=== PATIENT | female | born 1950 | race Caucasian/White ===

== ENCOUNTER 2024-03-28 16:31 | Emergency (ER) | payer MEDICARE ==
[2024-03-28 18:11] VITALS: TEMP 97.6
[2024-03-28 18:30] LABS: Absolute Neutrophil Ct (ANC) 5.95 x10^3/uL (1.56-6.13); BASOPHIL % 0.4 % (0.1-1.2); Basophil (Absolute #) 0.04 x10^3/uL (0.01-0.08); Eosinophil % 1.4 % (0.7-5.8); Eosinophil (Absolute #) 0.13 x10^3/uL (0.04-0.36); Hematocrit 33.7 % (34.1-44.9); Hemoglobin 10.5 g/dL (11.2-15.7); IMMATURE GRAN # 0.02 x10^3u/L (0.001-0.031); IMMATURE GRAN % 0.2 % (0.001-0.429); Lymphocyte (Absolute #) 2.33 x10^3/uL (1.18-3.74); Lymphocytes % 25.3 % (19.3-51.7); Mean Corpuscular Hemoglobin 24.3 pg (25.6-32.2); Mean Corpuscular Hgb Concent. 31.2 g/dL (32.2-35.5); Mean Platelet Volume 9.7 fL (9.4-12.3); Monocyte (Absolute #) 0.73 x10^3/uL (0.24-0.86); Monocytes % 7.9 % (4.7-12.5); Neutrophil % 64.8 % (34.0-71.1); Platelet Count 228 x10^3/uL (182-369); Red Blood Count 4.32 x10^6/uL (3.93-5.22); Red Cell Distribution Width 14.7 % (11.7-14.4); White Blood Count 9.2 x10^3/uL (3.98-10.04)
[2024-03-28] MEDS ORDERED: SUBLIMAZE 100 MCG/2 ML ONE (18:34)
[2024-03-28] MEDS ORDERED: Zofran 4 MG/2 ML VIAL ONE (18:34)
[2024-03-28] MEDS: Zofran 4 MG/2 ML VIAL IV ONE (18:35)
[2024-03-28] MEDS: SUBLIMAZE 100 MCG/2 ML IV ONE (18:36)
[2024-03-28 19:17] LABS: ALBUMIN 4.4 g/dL (3.5-5.0); ANION GAP 11.9 MEQ/L (5-15); BILIRUBIN,TOTAL 0.5 mg/dL (0.2-1.3); Calcium 9.3 mg/dL (8.4-10.2); Creatinine 1 0.96 mg/dL (0.52-1.04); EST GLOMERULAR FILTRATION RATE 62.1 ML/MIN; MAGNESIUM 2.1 mg/dL (1.6-2.3); Potassium 3.9 mmol/L (3.5-5.1); Total Protein 7.5 g/dL (6.3-8.2)
[2024-03-28] MEDS ORDERED: TRANDATE 20 MG/4 ML SYRINGE IV ONE ×2 (20:21→21:40)
[2024-03-28] MEDS: TRANDATE 20 MG/4 ML SYRINGE IV ONE ×2 (20:21→21:44)
[2024-03-28 21:08] VITALS: RESP 10
--- NOTE | 2024-03-28 22:58 | ERPHSYRPT ---
- History of Present Illness Time Seen by Provider: 03/28/24 18:07 Source: patient Exam Limitations: no limitations Patient Subjective Stated Complaint: Shoulder pain ([place]) Triage Nursing Assessment: Patient ambulated back to ED and transferred self to bed. Patient A+O X 3. Patient's skin pink, warm and dry. Patient states she has arthritis in pe[place] shoulders and need surgery, but has to wait until May. Patient states today her pain is 9/10 in pe[place] shoulders. Patient denies injury or trauma. Physician History: 73 years old female with history of arthritis, hypertension presented in the ER with complaint of bilateral shoulder and upper back pain for the last couple of weeks with progressive worsening since yesterday. Patient reports pain going across upper back. Denies any chest pain or palpitations. No difficulty breathing. Reproducible pain in the shoulder with movements. No midline back pain. No fall or trauma. Allergies/Adverse Reactions: phentermine [From Adipex-P] Allergy (Verified 03/28/24 17:58) Hx Influenza Vaccination/Date Given: Yes Hx Pneumococcal Vaccination/Date Given: No Immunizations Up to Date: Yes Travel Risk - International Travel Have you traveled outside of the country in past 3 weeks: No - Emerging Infectious Disease Are you exhibiting symptoms associated with any current EIDs: No - Review of Systems Constitutional: No Symptoms Eyes: No Symptoms Ears, Nose, & Throat: No Symptoms Respiratory: No Symptoms Cardiac: No Symptoms Abdominal/Gastrointestinal: No Symptoms Genitourinary Symptoms: No Symptoms Musculoskeletal: Arthralgias, Back Pain Neurological: No Symptoms Endocrine: No Symptoms Hematologic/Lymphatic: No Symptoms Immunological/Allergic: No Symptoms - Past Medical History Pertinent Past Medical History: Yes Neurological History: No Pertinent History ENT History: No Pertinent History Cardiac History: High Cholesterol, Hypertension Respiratory History: No Pertinent History Endocrine Medical History: No Pertinent History Musculoskeletal History: Arthritis GI Medical History: No Pertinent History History: No Pertinent History Psycho-Social History: Depression Female Reproductive Disorders: No Pertinent History - Past Surgical History Past Surgical History: Yes Cardiac: Cardiac Stent Respiratory: No Pertinent History Gastrointestinal: Appendectomy, Cholecystectomy Musculoskeletal: Orthopedic Surgery Female Surgical History: Hysterectomy Other Surgical History: Rotator cuff left shoulder. bladder repair - Social History Smoking Status: Never smoker Exposure to second hand smoke: No Drug Use: none - Social Determinants of Health Will the patient participate in the screening: Yes Do you worry about a steady place to live?: No Do you have any problems with any of the following?: No known problems In the past 12 months,have you had to go without utilities?: No Transportation Issues: No Has anyone in your support network made you feel unsafe?: No Have you or anyone in your house had to go without enough: No - Nursing Vital Signs Nursing Vital Signs: Initial Vital Signs Temperature 97.6 F 03/28/24 18:01 Pulse Rate 70 03/28/24 18:01 Respiratory Rate 18 03/28/24 18:01 Blood Pressure 183/91 03/28/24 18:01 O2 Sat by Pulse Oximetry 98 03/28/24 18:01 Pain Scale Pain Intensity 4 - Physical Exam General Appearance: no apparent distress Eye Exam: PERRL/EOMI Ears, Nose, Throat Exam: normal ENT inspection Neck Exam: normal inspection, non-tender, supple, full range of motion Respiratory Exam: normal breath sounds, chest tenderness (Upper back tenderness. No midline tenderness), lungs clear Cardiovascular Exam: regular rate/rhythm, normal heart sounds Gastrointestinal/Abdomen Exam: soft, normal bowel sounds, No tenderness Back Exam: normal inspection, normal range of motion, No vertebral tenderness Extremity Exam: normal inspection, limited range of motion (Bilateral shoulders) Neurologic Exam: alert, oriented x 3, cooperative Skin Exam: normal color SpO2 Interpretation: normal SpO2: 94 O2 Delivery: Room Air - Course EKG Interpreted by Me: RATE (68), Sinus Rhythm, NORMAL AXIS, NORMAL INTERVALS, Non-specific ST Changes Ordered Tests: Active Orders 24 hr Category Date Time Status Job Printer Apprentice STAT Care 03/28/24 18:08 Active EKG-ER Only STAT Care 03/28/24 18:07 Active IV Insertion STAT Care 03/28/24 18:07 Active CHEST WITH CONTRAST [CT] Stat Exams 03/28/24 20:09 Taken CBC W DIFF Stat Lab 03/28/24 18:25 Completed CMP Stat Lab 03/28/24 18:25 Completed MAGNESIUM Stat Lab 03/28/24 18:25 Completed NT PRO BNPII Stat Lab 03/28/24 18:25 Completed TROPONIN Q4H Lab 03/28/24 18:25 Completed TROPONIN Q4H Lab 03/28/24 22:00 Completed TROPONIN Q4H Lab 03/29/24 02:15 Ordered Medication Summary Discontinued Medications Generic Name Dose Route Start Last Admin Trade Name Freq PRN Reason Stop Dose Admin Fentanyl Citrate 50 mcg 03/28/24 18:07 03/28/24 18:36 Fentanyl Citrate 100 Mcg/2 Ml* Vial IV 03/28/24 18:08 50 mcg STAT ONE Administration Fentanyl Citrate Confirm 03/28/24 18:34 Fentanyl Citrate 100 Mcg/2 Ml* Vial Administered 03/28/24 18:35 Dose 100 mcg .ROUTE .STK-MED ONE Labetalol HCl 10 mg 03/28/24 19:48 03/28/24 20:21 Labetalol Hcl 20 Mg/4 Ml Disp.Syringe IV 03/28/24 19:49 10 mg STAT ONE Administration Labetalol HCl Confirm 03/28/24 20:21 Labetalol Hcl 20 Mg/4 Ml Disp.Syringe Administered 03/28/24 20:22 Dose 20 mg IV .STK-MED ONE Labetalol HCl 10 mg 03/28/24 21:34 03/28/24 21:44 Labetalol Hcl 20 Mg/4 Ml Disp.Syringe IV 03/28/24 21:35 10 mg STAT ONE Administration Labetalol HCl Confirm 03/28/24 21:40 Labetalol Hcl 20 Mg/4 Ml Disp.Syringe Administered 03/28/24 21:41 Dose 20 mg IV .STK-MED ONE Ondansetron HCl 4 mg 03/28/24 18:08 03/28/24 18:35 Ondansetron Hcl 4 Mg/2 Ml Vial IV 03/28/24 18:09 4 mg STAT ONE Administration Ondansetron HCl Confirm 03/28/24 18:34 Ondansetron Hcl 4 Mg/2 Ml Vial Administered 03/28/24 18:35 Dose 4 mg .ROUTE .STK-MED ONE Lab/Rad Data: Laboratory Result Diagrams 03/28/24 18:25 03/28/24 18:25 Laboratory Results 03/28/24 03/28/24 03/28/24 Range/Units 22:00 18:25 18:25 WBC (3.98-10.04) x10^3/uL RBC (3.93-5.22) x10^6/uL Hgb (11.2-15.7) g/dL Hct (34.1-44.9) % MCV (79.4-94.8) fL MCH (25.6-32.2) pg MCHC (32.2-35.5) g/dL RDW (11.7-14.4) % Plt Count (182-369) x10^3/uL MPV (9.4-12.3) fL Gran % (34.0-71.1) % Immature Gran % (Auto) (0.001-0.429) % Nucleat RBC Rel Count (0.00-0.2) % Eos # (Auto) (0.04-0.36) x10^3/uL Immature Gran # (Auto) (0.001-0.031) x10^3u/L Absolute Lymphs (auto) (1.18-3.74) x10^3/uL Absolute Monos (auto) (0.24-0.86) x10^3/uL Absolute Nucleated RBC (0.00-0.012) x10^3u/L Lymphocytes % (19.3-51.7) % Monocytes % (4.7-12.5) % Eosinophils % (0.7-5.8) % Basophils % (0.1-1.2) % Absolute Granulocytes (1.56-6.13) x10^3/uL Basophils # (0.01-0.08) x10^3/uL Sodium 138 (135-145) mmol/L Potassium 3.9 (3.5-5.1) mmol/L Chloride 103 (98-107) mmol/L Carbon Dioxide 27 (22-30) mmol/L Anion Gap 11.9 (5-15) MEQ/L BUN 19 H (7-17) mg/dL Creatinine 0.96 (0.52-1.04) mg/dL Estimated GFR 62.1 ML/MIN Glucose 109 H (74-106) mg/dL Calcium 9.3 (8.4-10.2) mg/dL Magnesium 2.1 (1.6-2.3) mg/dL Total Bilirubin 0.50 (0.2-1.3) mg/dL AST 31 (14-36) U/L ALT 24 (0-35) U/L Alkaline Phosphatase 151 H (38-126) U/L Troponin I < 0.012 < 0.012 (0.000-0.033) ng/mL NT-Pro-B Natriuret Pep 1120 (<300) pg/mL Serum Total Protein 7.5 (6.3-8.2) g/dL Albumin 4.4 (3.5-5.0) g/dL 03/28/24 Range/Units 18:25 WBC 9.2 (3.98-10.04) x10^3/uL RBC 4.32 (3.93-5.22) x10^6/uL Hgb 10.5 L (11.2-15.7) g/dL Hct 33.7 L (34.1-44.9) % MCV 78.0 L (79.4-94.8) fL MCH 24.3 L (25.6-32.2) pg MCHC 31.2 L (32.2-35.5) g/dL RDW 14.7 H (11.7-14.4) % Plt Count 228 (182-369) x10^3/uL MPV 9.7 (9.4-12.3) fL Gran % 64.8 (34.0-71.1) % Immature Gran % (Auto) 0.2 (0.001-0.429) % Nucleat RBC Rel Count 0.0 (0.00-0.2) % Eos # (Auto) 0.13 (0.04-0.36) x10^3/uL Immature Gran # (Auto) 0.02 (0.001-0.031) x10^3u/L Absolute Lymphs (auto) 2.33 (1.18-3.74) x10^3/uL Absolute Monos (auto) 0.73 (0.24-0.86) x10^3/uL Absolute Nucleated RBC 0.00 (0.00-0.012) x10^3u/L Lymphocytes % 25.3 (19.3-51.7) % Monocytes % 7.9 (4.7-12.5) % Eosinophils % 1.4 (0.7-5.8) % Basophils % 0.4 (0.1-1.2) % Absolute Granulocytes 5.95 (1.56-6.13) x10^3/uL Basophils # 0.04 (0.01-0.08) x10^3/uL Sodium (135-145) mmol/L Potassium (3.5-5.1) mmol/L Chloride (98-107) mmol/L Carbon Dioxide (22-30) mmol/L Anion Gap (5-15) MEQ/L BUN (7-17) mg/dL Creatinine (0.52-1.04) mg/dL Estimated GFR ML/MIN Glucose (74-106) mg/dL Calcium (8.4-10.2) mg/dL Magnesium (1.6-2.3) mg/dL Total Bilirubin (0.2-1.3) mg/dL AST (14-36) U/L ALT (0-35) U/L Alkaline Phosphatase (38-126) U/L Troponin I (0.000-0.033) ng/mL NT-Pro-B Natriuret Pep (<300) pg/mL Serum Total Protein (6.3-8.2) g/dL Albumin (3.5-5.0) g/dL - Progress Progress: improved Progress Note: 03/28/24 22:54 73-year-old is evaluated in the ER for bilateral shoulder and upper back pain. Patient blood pressure was in 200s. EKG is sinus rhythm with no ST elevations. Given symptomatic treatment for pain and labetalol with improvement of pressure in 170s. Patient still continues to have pain. Normal white count, fairly unremarkable chemistries and negative troponins x 2. Has no chest pain. Obtained CTA chest which is negative for PE/dissection or any other acute intrathoracic/spinal findings. I believe patient's pain is secondary to arthritis. She does have [place] at home which she is advised to continue and follow-up with orthopedics/pain management. I do not think patient needs further workup. Counseled on blood pressure monitoring, keep a log and follow- up with PCP. I will give her clonidine to go home to take as needed for blood pressure greater than 160. Discussed signs symptoms of worsening needing return to ER which she seems understanding. Stable for discharge. Counseled pt/family regarding: lab results, diagnosis, need for follow-up, rad results Medical Desision Making - Independent Historian Additional History obtained from: Spouse - Diagnostic Testing Diagnostic test were ordered, analyzed, and reviewed by me: Yes Radiological Interpretation: Reviewed by me, Teleradiologist Report - Risk of complications The pt has a mod risk of morbidity or mortality based on: Need for prescription drug management - Departure Departure Disposition: Home Clinical Impression: Bilateral shoulder region arthritis, Uncontrolled hypertension, Muscle strain of upper back Condition: Stable Critical Care Time: No Referrals: GOVIND MORILLO JR [Primary Care Provider] - Follow up with PCP 1 day Instructions: Shoulder Tendinopathy (DC) Additional Instructions: Continue with your current pain medication. Follow-up with your orthopedic surgeon for reevaluation. Monitor your blood pressure regularly, keep a log and follow-up with PCP for reevaluation to see if he needs adjustment in dose of antihypertensive. Take clonidine only as needed if blood pressure greater than 160 systolic and do not take more than 2 pills in 24 hours. Return to ER for worsening chest pain, back pain, numbness tingling weakness etc. Prescriptions: Clonidine HCl 0.1 mg [Clonidine 0.1 mg Tablet] 0.1 mg PO Q12H PRN PRN 10 Days #10 tablet PRN Reason: Hypertension
[2024-03-28 23:12] VITALS: BP 174/91; PULSE 79; O2SAT 95
--- NOTE | 2024-03-28 23:36 | XRAY ---
Indication: Back pain. Aortic dissection. Conventional contrast enhanced CTA chest performed using 80 cc Isovue 370 contrast. 2-D sagittal and coronal reformatted images obtained. Additional 3-D reformatted images obtained using a separate workstation. Comparison: None Thoracic aorta is minimally arteriosclerotic without aneurysm/dissection. No central pulmonary embolus. Heart is not enlarged with scattered coronary calcifications. No pathologic mediastinal/hilar lymphadenopathy. Moderate-sized hiatal hernia with partial intrathoracic stomach. Lungs demonstrates 9 mm anterior medial right upper lobe and 3 mm peripheral right lower lobe noncalcified nodules. No infiltrate, consolidation, or effusion. Bony thorax intact with osteopenia and mild degenerative changes throughout spine. Limited upper abdomen demonstrates fatty liver and cholecystectomy clips. Impression: 1. Minimal arteriosclerotic aorta and scattered coronary calcifications. Remaining CTA chest is negative. 2. Incidental indeterminant right upper and right lower lobe noncalcified nodules. Too small for PET/CT. Outside comparison studies recommended. If not, recommend follow-up per Fleischner guidelines. 3. Chronic findings including hiatal hernia with partial intrathoracic stomach, fatty liver, and chronic bony findings.
== END 2024-03-28 23:22 | disposition home or self-care (01) ==
LOC: ED 16:31
DX: S29.012A Strain of muscle and tendon of back wall of thorax, initial encounter (principal); M19.012 Primary osteoarthritis, left shoulder; M19.011 Primary osteoarthritis, right shoulder; I10 Essential (primary) hypertension; M25.511 Pain in right shoulder; M25.512 Pain in left shoulder; E78.5 Hyperlipidemia, unspecified; Z79.899 Other long term (current) drug therapy
CPT/HCPCS: 36000; 36415; 71260; 80053; 83735; 83880; 84484; 85025; 93005; 93041; 96374; 96375; 99284; J2405; J3010

== ENCOUNTER 2024-05-25 14:28 | Observation (INO) | payer MEDICARE ==
[2024-05-25 15:06] LABS: Absolute Neutrophil Ct (ANC) 6.19 x10^3/uL (1.56-6.13); BASOPHIL % 0.3 % (0.1-1.2); Basophil (Absolute #) 0.03 x10^3/uL (0.01-0.08); Eosinophil % 1.4 % (0.7-5.8); Eosinophil (Absolute #) 0.13 x10^3/uL (0.04-0.36); Hematocrit 31.3 % (34.1-44.9); Hemoglobin 9.8 g/dL (11.2-15.7); IMMATURE GRAN # 0.09 x10^3u/L (0.001-0.031); Lymphocyte (Absolute #) 2.14 x10^3/uL (1.18-3.74); Lymphocytes % 22.9 % (19.3-51.7); Mean Cell Volume 78.6 fL (79.4-94.8); Mean Corpuscular Hemoglobin 24.6 pg (25.6-32.2); Mean Corpuscular Hgb Concent. 31.3 g/dL (32.2-35.5); Mean Platelet Volume 9.6 fL (9.4-12.3); Monocyte (Absolute #) 0.77 x10^3/uL (0.24-0.86); Monocytes % 8.2 % (4.7-12.5); Neutrophil % 66.2 % (34.0-71.1); Platelet Count 274 x10^3/uL (182-369); Red Blood Count 3.98 x10^6/uL (3.93-5.22); Red Cell Distribution Width 15.6 % (11.7-14.4); White Blood Count 9.4 x10^3/uL (3.98-10.04)
[2024-05-25 15:19] LABS: ALBUMIN 4.3 g/dL (3.5-5.0); ANION GAP 13.8 MEQ/L (5-15); BILIRUBIN,TOTAL 0.4 mg/dL (0.2-1.3); Creatinine 1 1.06 mg/dL (0.52-1.04); EST GLOMERULAR FILTRATION RATE 55.1 ML/MIN; Potassium 3.7 mmol/L (3.5-5.1); Total Protein 7.5 g/dL (6.3-8.2)
[2024-05-25] MEDS ORDERED: Zofran 4 MG/2 ML VIAL ONE (15:43)
[2024-05-25] MEDS ORDERED: Hydromorphone 1 mg/ml Injection ONE ×3 (15:43→18:33)
[2024-05-25] MEDS: Hydromorphone 1 mg/ml Injection IV ONE ×4 (15:45→22:42)
[2024-05-25] MEDS: Zofran 4 MG/2 ML VIAL IV ONE (15:45)
--- NOTE | 2024-05-25 16:45 | XRAY ---
CLINICAL HISTORY: trauma COMPARISON: None. TECHNIQUE: Contiguous 3.[address] images of the chest were acquired with the administration of 80CC isovue-370mg/ml intravenous contrast. Coronal and sagittal reconstructions were obtained.. One of the following dose reduction techniques was utilized for this exam: Automated exposure control, adjustment of the mA and/or kV according to patient size, and use of iterative reconstruction. CTDI:15.04mGy, DLP: 2101.25mGy*cm. FINDINGS: Lungs: Right upper lobe well-defined nodule measuring 11 x 19.1, in the superior segment of the right lower lobe measured 3.4 x 3.1 mm smaller nodule. Bilateral basal subpleural curvilinear thin bands and reticulation with scattered fibro atelectatic bands are likely sequelae of previous infection. Lungs are clear with no evidence of consolidation, collapse No pleural effusion or pleural thickening. Mediastinum: No mediastinal mass or abnormal lymphadenopathy. Normal appearance of the thymus. Hilar Structures: Normal size and configuration, no enlargement. Heart and Great Vessels: Cardiomegaly. No pericardial effusion. Normal caliber and course of the thoracic aorta and other great vessels. No significant atherosclerosis or aneurysm. Normal enhancement of the great vessels post-contrast. Pulmonary Arteries: No evidence of pulmonary embolism. Normal size and course of the pulmonary arteries. Esophagus: Normal course and caliber. No masses or dilatation. Sizable hiatus hernia. Bones: Sternal body oblique fracture involving anterior and posterior cortex with no overlying or underlying mediastinal hematoma. Degenerative changes. Of the thoracic spine Upper Abdomen: Cholecystectomy The pancreas shows 2 well-defined cystic lesions in the body measuring 18 x 14 mm and 11.9 x 11.3 mm. Thyroid: Normal size and morphology. No nodules or masses. IMPRESSION: 1. Sternal body oblique fracture involving anterior and posterior cortex with no overlying or underlying significant mediastinal hematoma. 2. No acute pulmonary consolidation or effusion. 3. Right upper lung lobe (11 x 9.1mm) nodule and right lower lower lung lobe ( 3.4 x 3.1 mm) nodule. 4. Cardiomegaly. 5. Sizable hiatus hernia. 6. Pancreatic body two small cystic lesions. [facility] ER was called at [phone] at 03:36 PM PRODUCTION DIRECTOR, 05/25/2024 Keila,Nurse was informed regarding the presence of significant medical findings in the report. Electronically Signed by: Braden Rodriguez MD. (05/25/2024 16:40:58 EDT)
--- NOTE | 2024-05-25 16:59 | XRAY ---
CLINICAL HISTORY: trauma COMPARISON: No prior studies available for comparison. TECHNIQUE: CT of the abdomen and pelvis was performed with 80 cc isovue-370 contrast, with the following protocol: axial images with, and reconstructed coronal and sagittal images. One of the following dose reduction techniques was utilized for this exam: Automated exposure control, adjustment of the mA and/or kV according to patient size, and use of iterative reconstruction. FINDINGS: Abdomen: A large hiatus hernia was noted measuring 6.9x2.6 cm. Liver: Normal in size, shape, and density. No focal lesions, cysts, or masses were identified. Hepatic vasculature and biliary ducts are unremarkable. Gallbladder and Biliary System: The gallbladder is surgically removed The common bile duct is normal in caliber without dilation. Pancreas: The pancreas shows diffuse atrophy with two well-defined peripherally located cystic lesions noted at the pancreatic body, with no septation or soft tissue component, measuring 1.8x1.3 and 1.2x1 cm. The pancreatic duct is not dilated. Spleen: Normal in size, shape, and density. No splenic lesions or masses were identified. Kidneys and Adrenal Glands: Both kidneys are normal in size, shape, and position. Cortical thickness is within normal limits. No renal calculi or hydronephrosis. Adrenal glands are unremarkable with no evidence of masses or hyperplasia. Pelvis: Urinary Bladder: Normal in contour and wall thickness. A small left bladder diverticulum was noted measuring 10x8 mm. No intraluminal lesions were identified. Uterus: Surgically removed. Ovaries: Not visualized. Peritoneal and Retroperitoneal Structures: No free fluid or abnormal fluid collections were identified within the abdomen or pelvis. No lymphadenopathy was noted. Bowel: The visualized bowel loops are normal in caliber and appearance. No evidence of bowel obstruction or wall thickening. Multiple sigmoid diverticular outpouchings noted, no signs of diverticulitis. Bones and Soft Tissues: Pelvic bones and soft tissues are unremarkable. No fractures or abnormal masses were identified. Lower back subcutaneous device noted with wires extendng to left sacrum likely sacral nerve stimulator. Chest findings are described with CT chest. IMPRESSION: 1. No intra-abdominal injury or free fluid detected. 2. Pancreatic cystic lesions were noted, likely benign, for further assessment with MRI. 3. Hiatus herna. 4. Non-complicated sigmoid diverticulosis. 5. A small bladder diverticulum. Electronically Signed by: Braden Rodriguez MD. (05/25/2024 16:53:56 EDT)
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
[2024-05-25] MEDS ORDERED: TORAdol 30 mg Injection ONE (18:33)
[2024-05-25] MEDS: TORAdol 30 mg Injection IV ONE (18:34)
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
[2024-05-25] MEDS: Hydromorphone 1 mg/ml Injection IV PRN (20:09)
[2024-05-25] MEDS ORDERED: Nitrostat 0.4 MG Tablet SL PRN (23:37)
[2024-05-25] MEDS ORDERED: CLONIDINE 0.1 MG TABLET PO PRN (23:37)
[2024-05-26] MEDS: NORCO 5/325 MG PO PRN (00:42)
[2024-05-26] MEDS: Zofran 4 MG/2 ML VIAL IV PRN (00:47)
[2024-05-26] MEDS ORDERED: Ativan 2 MG/1 ML VIAL ONE (02:05)
[2024-05-26] MEDS: Ativan 2 MG/1 ML VIAL IV ONE (02:10)
[2024-05-26] MEDS: Hydromorphone 1 mg/ml Injection IV PRN (03:36)
[2024-05-26 04:32] LABS: Appearance Turbid (Clear); Bacteria Many /HPF (None Seen); Bilirubin Negative (Negative); Blood Moderate (Negative); Epithelial Cells Many /HPF (None Seen); Glucose, Urine Negative (Negative); Hyaline Casts NONE SEEN /LPF (0-2); Ketones Negative (Negative); Leukocyte Esterase Small (Negative); Nitrite Negative (Negative); Protein,Urine Dip Trace (Negative); RBC 21-50 /HPF (0-5); Specific Gravity >=1.030 (1.005-1.030); WBC >100 /HPF (0-5)
[2024-05-26 07:45] LABS: Hematocrit 31.6 % (34.1-44.9); Hemoglobin 9.7 g/dL (11.2-15.7); Mean Cell Volume 79.8 fL (79.4-94.8); Mean Corpuscular Hemoglobin 24.5 pg (25.6-32.2); Mean Corpuscular Hgb Concent. 30.7 g/dL (32.2-35.5); Mean Platelet Volume 9.6 fL (9.4-12.3); Platelet Count 299 x10^3/uL (182-369); Red Blood Count 3.96 x10^6/uL (3.93-5.22); Red Cell Distribution Width 15.9 % (11.7-14.4)
[2024-05-26 08:09] LABS: ALBUMIN 4.1 g/dL (3.5-5.0); ANION GAP 14.5 MEQ/L (5-15); BILIRUBIN,TOTAL 0.6 mg/dL (0.2-1.3); Calcium 8.7 mg/dL (8.4-10.2); Creatinine 1 1.21 mg/dL (0.52-1.04); Total Protein 7.2 g/dL (6.3-8.2)
[2024-05-26] MEDS: NORCO 10-325 MG PO PRN (08:46)
[2024-05-26] MEDS: Lidoderm Patch 5% TOP SCH (08:47)
[2024-05-26] MEDS: DIOVAN 80 MG PO SCH (08:48)
[2024-05-26] MEDS: Namenda 5 MG PO SCH (08:48)
[2024-05-26] MEDS: Imdur 60MG PO SCH (08:48)
[2024-05-26] MEDS: Cymbalta 30 MG Capsule PO SCH (08:49)
[2024-05-26] MEDS: NEURONTIN PO SCH (08:49)
[2024-05-26] MEDS: Ranexa 500 MG PO SCH (08:49)
[2024-05-26] MEDS: celeBREX 100 MG PO SCH (08:49)
[2024-05-26] MEDS: Docusate Sodium 100 MG PO SCH (08:50)
[2024-05-26] MEDS: PLAVIX Tablet PO SCH (08:51)
[2024-05-26] MEDS: hydroDIURIL 25 MG PO SCH (08:51)
[2024-05-26] MEDS: Toprol-Xl 25MG Tablets PO SCH (08:51)
[2024-05-26] MEDS: Aricept 10 MG PO SCH (08:52)
[2024-05-26] MEDS: Protonix 40MG Tablet PO SCH (08:52)
[2024-05-26] MEDS: SYNTHROID 88 MCG PO SCH (08:52)
[2024-05-26] MEDS: ROCEPHIN 1 GM / 100 ML NaCl 1 GM/100 ML IVPB IV SCH (08:53)
[2024-05-26] MEDS ORDERED: Compazine 10 MG/2 ML IM PRN (09:10)
[2024-05-26] MEDS: Sodium Chloride 0.9% 1000 ML 1,000 ML IV SCH (09:29)
[2024-05-26] MEDS ORDERED: NON-FORMULARY ITEM (Donepezil Hcl [Aricept] 5 MG Tablet) PO SCH (10:00)
[2024-05-26] MEDS ORDERED: NON-FORMULARY ITEM (Duloxetine Hcl [Duloxetine Hcl] 60 MG Capsule.Dr) PO SCH (10:00)
[2024-05-26] MEDS ORDERED: NON-FORMULARY ITEM (Memantine Hcl [Memantine Hcl] 10 MG Tablet) PO SCH (10:00)
[2024-05-26] MEDS ORDERED: Narcan 0.4 MG/ML IV PRN (10:06)
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
[2024-05-26] MEDS: Compazine 10 MG/2 ML IV PRN (11:30)
[2024-05-26 12:22] LABS: Hematocrit 28.4 % (34.1-44.9); Hemoglobin 8.9 g/dL (11.2-15.7)
--- NOTE | 2024-05-26 12:32 | XRAY ---
CLINICAL HISTORY: cervical spine pain COMPARISON: No previous studies are available for comparison. TECHNIQUE: CT scan of the cervical spine was performed without the administration of intravenous contrast. Contiguous axial images were obtained from the skull base to the upper thoracic spine. Coronal and sagittal reformatted images were also reviewed. One of the following dose reduction techniques was utilized for this exam. Automated exposure control, adjustment of the mA and/or kV according to patient size, and use of iterative reconstruction. FINDINGS: No evidence of acute fracture or dislocation. Alignment: Reduced cervical spine lordosis, possibly due to muscular spasm. First-degree retrolisthesis of C4 over C5. Vertebrae: C5 anterior inferior detached osteophyte noted. Cervical spine degenerative changes with osteophytes. C5 vertebral body small cystic area could be a degenerative cyst. The vertebral bodies are normal in height and alignment. Generalized reduced bone density. Normal configuration of the posterior elements. Intervertebral Discs: Multilevel reduced cervical disc spaces. C2-3 disc mild diffuse disc bulge noted. Diffuse disc bulge/osteophyte complexes of C3-C4, C4-C5, C5-C6, and C6-C7 discs compressing the anterior thecal sac with moderate to marked bilateral neural foraminal stenosis and mild to moderate spinal canal stenosis, MRI is advised. Atlantoaxial joint degenerative changes with osteophytes and joint narrowing. Facet Joints: The cervical facet joints are normal without evidence of dislocation, subluxation, or significant degenerative changes. The scanned upper thoracic spine showed multilevel moderate facet joint degenerative changes. Prevertebral Soft Tissues: The prevertebral soft tissues are normal in thickness without evidence of mass or abnormal fluid collection. Additional Findings: No other significant findings are noted in the visualized soft tissue structures or bony elements. IMPRESSION: 1. No evidence of acute fracture or dislocation. 2. First-degree retrolisthesis of C4 over C5. 3. C5 anterior inferior detached osteophyte noted. 4. Moderate cervical spondylosis. 5. Multilevel reduced cervical disc spaces. 6. C2-3 disc mild diffuse disc bulge noted. 7. Diffuse disc bulge/osteophyte complexes of C3-C4, C4-C5, C5-C6, and C6-C7 discs compressing the anterior thecal sac with moderate to marked bilateral neural foraminal stenosis and mild to moderate spinal canal stenosis, MRI is advised. 8. Atlantoaxial joint degenerative changes with osteophytes and joint narrowing. 9. The scanned upper thoracic spine showed multilevel moderate facet joint degenerative changes. Electronically Signed by: Braden Rodriguez MD. (05/26/2024 12:27:18 EDT)
[2024-05-26] MEDS: PHARMACY DOSING REQUEST MC ONE (13:09)
[2024-05-26] MEDS: Reglan 10 MG/2 ML IV ONE (13:26)
[2024-05-26] MEDS ORDERED: DIPRIVAN 200 MG/20 ML IV ONE ×2 (14:09→15:10)
[2024-05-26] MEDS ORDERED: Quelicin Fliptop 200 MG/10 ML ONE (15:10)
[2024-05-26] MEDS ORDERED: Ephedrine Sulfate 50 MG/ML ONE (15:10)
[2024-05-26] MEDS ORDERED: PHENYLEPHRINE HCL ONE (15:10)
[2024-05-26 18:39] LABS: Hematocrit 27.9 % (34.1-44.9); Hemoglobin 8.8 g/dL (11.2-15.7)
[2024-05-26] MEDS: ZOCOR 20MG PO SCH (21:41)
[2024-05-26] MEDS ORDERED: NON-FORMULARY ITEM (Rosuvastatin Calcium [Rosuvastatin Calcium] 10 MG Tablet) PO SCH (22:00)
[2024-05-27 00:22] LABS: Hematocrit 26.1 % (34.1-44.9); Hemoglobin 8.1 g/dL (11.2-15.7)
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
[2024-05-27 06:26] LABS: Absolute Neutrophil Ct (ANC) 8.12 x10^3/uL (1.56-6.13); BASOPHIL % 0.2 % (0.1-1.2); Basophil (Absolute #) 0.03 x10^3/uL (0.01-0.08); Eosinophil % 1.3 % (0.7-5.8); Eosinophil (Absolute #) 0.16 x10^3/uL (0.04-0.36); Hematocrit 25.9 % (34.1-44.9); Hemoglobin 8.1 g/dL (11.2-15.7); IMMATURE GRAN # 0.04 x10^3u/L (0.001-0.031); IMMATURE GRAN % 0.3 % (0.001-0.429); Lymphocytes % 19.9 % (19.3-51.7); Mean Cell Volume 79.2 fL (79.4-94.8); Mean Corpuscular Hemoglobin 24.8 pg (25.6-32.2); Mean Corpuscular Hgb Concent. 31.3 g/dL (32.2-35.5); Mean Platelet Volume 9.8 fL (9.4-12.3); Monocyte (Absolute #) 1.29 x10^3/uL (0.24-0.86); Monocytes % 10.7 % (4.7-12.5); Neutrophil % 67.6 % (34.0-71.1); Platelet Count 209 x10^3/uL (182-369); Red Blood Count 3.27 x10^6/uL (3.93-5.22)
[2024-05-27 06:44] LABS: ALBUMIN 3.7 g/dL (3.5-5.0); ANION GAP 10.9 MEQ/L (5-15); BILIRUBIN,TOTAL 0.7 mg/dL (0.2-1.3); Calcium 8.2 mg/dL (8.4-10.2); Creatinine 1 0.99 mg/dL (0.52-1.04); EST GLOMERULAR FILTRATION RATE 59.8 ML/MIN; Potassium 4.2 mmol/L (3.5-5.1); Total Protein 6.6 g/dL (6.3-8.2)
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
--- NOTE | 2024-05-27 08:59 | OP ---
SURGERY DATE/TIME: 05/26/2024 [id number] PREOPERATIVE DIAGNOSIS: Hematemesis, upper gastrointestinal bleed with acute blood loss anemia. POSTOPERATIVE DIAGNOSES: 1) Hematemesis, upper gastrointestinal bleed with acute blood loss anemia. 2) Hiatal hernia. 3) Gastritis. PROCEDURE: SURGEON: Avinash Hernandez MD ANESTHESIA: General. ESTIMATED BLOOD LOSS: Minimal. COMPLICATIONS: None. SPECIMENS: None. FINDINGS: Gastritis involving the fundus of the stomach and a small hiatal hernia. Old blood in the stomach. Very minimal oozing from the gastritis. INDICATIONS: The patient presents with acute GI bleed. After discussing risks and benefits of the procedure, the patient wished to proceed. DESCRIPTION OF PROCEDURE AND FINDINGS: The patient was brought to the endoscopy suite, placed under general anesthesia, placed in left lateral decubitus position. Gastroscope was advanced in the mouth and directly advanced through the esophagus. Esophagus traversed. First and second portions of the duodenum evaluated. The duodenum was completely normal. There was no blood in the duodenum. Scope pulled back in the stomach. There was old blood in the fundus of the stomach that was suctioned out. Suctioned out old blood and clots, and on retroflexion, we could see small hiatal hernia. There was also gastritis, looks like where the hiatal hernia is sliding in and out of the chest causing irritation here. There is some very minor punctate ooze from this area but nothing that could be intervened on. Hiatal hernia is small to moderate. Scope straightened and then removed. The esophagus further evaluated. The esophagus appears normal. Scope removed. The patient recovering and taken to PACU in stable condition. Okay for soft diet and okay to resume aspirin and Plavix tomorrow.
[2024-05-27] MEDS: ECOTRIN 81 MG PO SCH (09:04)
[2024-05-27 12:25] LABS: Hematocrit 26.8 % (34.1-44.9); Hemoglobin 8.4 g/dL (11.2-15.7)
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
[2024-05-27] MEDS: TYLENOL EXTRA STRENGTH 500 MG PO PRN (15:13)
[2024-05-27 18:13] LABS: Hematocrit 25.4 % (34.1-44.9); Hemoglobin 7.6 g/dL (11.2-15.7)
[2024-05-28 04:43] LABS: Absolute Neutrophil Ct (ANC) 6.28 x10^3/uL (1.56-6.13); BASOPHIL % 0.2 % (0.1-1.2); Basophil (Absolute #) 0.02 x10^3/uL (0.01-0.08); Eosinophil (Absolute #) 0.18 x10^3/uL (0.04-0.36); Hematocrit 24.4 % (34.1-44.9); Hemoglobin 7.6 g/dL (11.2-15.7); IMMATURE GRAN # 0.03 x10^3u/L (0.001-0.031); IMMATURE GRAN % 0.3 % (0.001-0.429); Lymphocyte (Absolute #) 1.52 x10^3/uL (1.18-3.74); Lymphocytes % 16.8 % (19.3-51.7); Mean Corpuscular Hemoglobin 24.6 pg (25.6-32.2); Mean Corpuscular Hgb Concent. 31.1 g/dL (32.2-35.5); Monocyte (Absolute #) 1.01 x10^3/uL (0.24-0.86); Monocytes % 11.2 % (4.7-12.5); Neutrophil % 69.5 % (34.0-71.1); Platelet Count 178 x10^3/uL (182-369); Red Blood Count 3.09 x10^6/uL (3.93-5.22); Red Cell Distribution Width 15.4 % (11.7-14.4)
[2024-05-28 04:58] LABS: ALBUMIN 3.5 g/dL (3.5-5.0); ANION GAP 11.8 MEQ/L (5-15); BILIRUBIN,TOTAL 0.5 mg/dL (0.2-1.3); Calcium 8.8 mg/dL (8.4-10.2); Creatinine 1 0.75 mg/dL (0.52-1.04); EST GLOMERULAR FILTRATION RATE 83.5 ML/MIN; Total Protein 6.2 g/dL (6.3-8.2)
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
[2024-05-28 12:08] VITALS: BP 180/74; PULSE 78; TEMP 97.9; O2SAT 95
[2024-05-28 12:20] VITALS: RESP 18
== END 2024-05-28 15:47 | disposition home health service (06) ==
LOC: ED 14:28 → MED SURG 19:22
PROVIDERS: ADMIT Student in an Organized Health Care Education/Training Program; ATTEND Student in an Organized Health Care Education/Training Program
DX: S22.20XA Unspecified fracture of sternum, initial encounter for closed fracture (principal); N17.9 Acute kidney failure, unspecified; Z79.899 Other long term (current) drug therapy; I51.7 Cardiomegaly; M54.2 Cervicalgia; K92.0 Hematemesis; R91.1 Solitary pulmonary nodule; I10 Essential (primary) hypertension; V43.63XA Car passenger injured in collision with pick-up truck in traffic accident, initial encounter; K86.2 Cyst of pancreas; K44.9 Diaphragmatic hernia without obstruction or gangrene; K29.70 Gastritis, unspecified, without bleeding; R06.89 Other abnormalities of breathing; R07.81 Pleurodynia; N39.0 Urinary tract infection, site not specified; R33.9 Retention of urine, unspecified; E78.5 Hyperlipidemia, unspecified; E03.9 Hypothyroidism, unspecified
CPT/HCPCS: 00731; 36000; 36415; 43235; 70450; 71260; 72125; 74160; 80053; 81001; 85014; 85018; 85025; 85027; 87077; 87086; 87186; 93005; 94762; 96374; 96375; 96376; 97161; 97530; 99100; 99140; 99285; G0378; Q3014; J0330; J0696; J1171; J1885; J2060; J2371; J2405; J2704; A9270-GY